=== PATIENT | female | born 1945 | race Caucasian/White ===

== ENCOUNTER 2025-04-04 15:23 | Emergency (ER) | payer MEDICARE ==
[2025-04-04 16:20] LABS: BASOPHILS ABSOLUTE AUTO 0.1 K/mm3 (0.0-0.2); BASOPHILS PERCENT AUTO 1.1 % (0.0-1.0); EOSINOPHILS ABSOLUTE AUTO 0.4 K/mm3 (0.0-0.4); EOSINOPHILS PERCENT AUTO 5.6 % (0.0-6.0); IMMATURE GRAN ABSOLUTE AUTO 0.02 K/mm3 (0.00-0.05); IMMATURE GRAN PERCENT AUTO 0.3 % (0.0-0.4); LYMPHOCYTES ABSOLUTE AUTO 1.6 K/mm3 (1.0-4.8); LYMPHOCYTES PERCENT AUTO 24.1 % (24.0-44.0); MEAN PLATELET VOLUME 11.3 fl (9.4-12.3); MONOCYTES ABSOLUTE AUTO 0.6 K/mm3 (0.0-0.8); MONOCYTES PERCENT AUTO 9.9 % (0.0-8.0); NEUTROPHILS ABSOLUTE AUTO 3.8 K/mm3 (1.8-7.7); NEUTROPHILS PERCENT AUTO 59.0 % (41.0-71.0); NRBC ABSOLUTE 0.00 (0.00-0.02); NRBC PERCENT 0.0 % (0.0-0.2); PLATELET COUNT,PLT 181 K/mm3 (150-400); RED BLOOD CELL COUNT 4.02 M/mm3 (4.10-5.30); WHITE BLOOD CELL COUNT,WBC 6.48 K/mm3 (3.9-11.3)
[2025-04-04 16:32] LABS: INR 2.48
[2025-04-04 16:45] LABS: A/G RATIO 1.0 (1-2); ALANINE AMINOTRANSFERASE,ALT 33 U/L (14-59); ASPARTATE AMNIOTRANSFERASE,AST 32 U/L (15-37); BILIRUBIN TOTAL 0.5 mg/dL (0.2-1.0); BLOOD UREA NITROGEN,BUN 17 mg/dL (7-18); CARBON DIOXIDE,CO2 25 mEq/L (21-32); CHLORIDE,CL 104 mEq/L (98-107); CREATININE 1.1 mg/dL (0.55-1.02); ESTIMATED GFR 51 mL/min (>60); GLUCOSE RANDOM 113 mg/dL (70-99); POTASSIUM,K 3.6 mEq/L (3.5-5.1); PROTEIN TOTAL,TP 7.4 g/dl (6.4-8.2); SODIUM,NA 140 mEq/L (136-145)
== END 2025-04-04 16:35 | disposition home or self-care (01) ==
LOC: JD.ED 15:23
DX: S00.03XA Contusion of scalp, initial encounter (principal); Z79.01 Long term (current) use of anticoagulants; W01.0XXA Fall on same level from slipping, tripping and stumbling without subsequent striking against object, initial encounter
CPT/HCPCS: 36415; 70450; 72125; 80053; 85025; 85610; 99284; A9270; 99283